=== PATIENT | male | born 1990 | race Caucasian/White ===

== ENCOUNTER 2020-01-26 20:16 | Emergency (ER) | payer SELFPAY ==
[~2020-01-26] VITALS: Ht 180.3 cm; Wt 97.7 kg
[2020-01-26 20:21] VITALS: Ht 180.3 cm; Wt 97.7 kg
[2020-01-26] MEDS ORDERED: ZYPREXA20 MG PO (20:22)
[2020-01-26 21:22] VITALS: BP 144/90
== END 2020-01-26 21:23 | disposition home or self-care (01) ==
LOC: D.ER 20:16
DX: F41.9 Anxiety disorder, unspecified (principal); F43.10 Post-traumatic stress disorder, unspecified